=== PATIENT | female | born 1955 | race Caucasian/White ===

== ENCOUNTER 2020-06-26 16:47 | Emergency (ER) | payer OTHER ==
[~2020-06-26] VITALS: Ht 152.4 cm; Wt 59.0 kg
[2020-06-26] MEDS ORDERED: AMLODIPINE-OLM1 EACH PO (16:59)
== END 2020-06-26 20:22 | disposition home or self-care (01) ==
LOC: ER 16:47
DX: N39.0 Urinary tract infection, site not specified (principal)